=== PATIENT | male | born 1980 | race Caucasian/White ===

== ENCOUNTER 2021-12-07 09:35 | Emergency (ER) | payer BC, SELFPAY ==
[2021-12-07 09:42] VITALS: BP 157/101; PULSE 64; RESP 18; TEMP 36.1; O2SAT 100; BMI 28.1
--- NOTE | 2021-12-07 09:54 | XRR_ITS ---
PROCEDURE INFORMATION: Exam: XR Chest Exam date and time: 12/07/2021 10:07 AM Age: 41 years old Clinical indication: Pain; Angina pectoris; Additional info: Chest pain TECHNIQUE: Imaging protocol: Radiologic exam of the chest. Views: 1 view. COMPARISON: CR Chest 2 views* [id number] 02/26/2018 10:25 AM FINDINGS: Lungs: No focal airspace disease. Pleural spaces: Unremarkable. No pleural effusion. No pneumothorax. Heart/Mediastinum: Cardiomediastinal silhouette is within normal limits. Bones/joints: Unremarkable. XR/XR chest 1V portable [id number] IMPRESSION: No acute cardiopulmonary abnormality.
--- NOTE | 2021-12-07 09:54 | ECG_ITS ---
[facility] Test Date: 2021-12-07 Pat Name: Sanket Caceres Department: Room: Gender: Male Sock Mender: : 1980 Requested By: Radha Johnson Order Number: [id number] Akbar MD: Nirali Gallardo M.D. Measurements Intervals [place] Rate: 71 P: 19 [place]: 176 QRS: 49 QRSD: 81 T: 66 QT: 367 QTc: 400 Interpretive Statements SINUS RHYTHM WITH OCCASIONAL ECTOPIC PREMATURE COMPLEXES Compared to ECG 05/19/2016 09:53:33 T-wave abnormality no longer present Electronically Signed On 12-07-2021 22:17:07 CDT by Nirali Gallardo M.D. [id number]
[2021-12-07 10:15] VITALS: BP 146/92; PULSE 70; RESP 16; O2SAT 96
[2021-12-07 10:27] LABS: Basophils % 0.7 %; Eosinophils # 0.2 10^3/uL (0.0-0.8); Eosinophils % 2.9 %; Hematocrit 46.7 % (42.0-52.0); Hemoglobin 16.1 g/dL (11.7-16.6); Lymphocytes % 34.8 %; Mean Corpuscular HGB Conc 34.5 g/dL (30.0-36.0); Mean Corpuscular Hemoglobin 30.7 pg (28.0-34.0); Mean Platelet Volume 9.4 fL (7.4-10.4); Monocytes # 0.4 10^3/uL (0.2-0.9); Monocytes % 7.2 %; Neutrophils # 3.14 10^3/uL (1.8-7.7); Neutrophils % 54.2 %; Nucleated Red Blood Cells % 0 %; Platelet Count 289 10^3/cmm (130-400); Red Blood Count 5.25 10^6/uL (4.1-5.3); Red Cell Distribution Width 12.3 % (12.1-15.1); White Blood Count 5.8 10^3/uL (4.0-10.0)
--- NOTE | 2021-12-07 10:33 | ED_ITS ---
Documented by User: KEVIN Snowden 12/07/21 13:16 HPI - Chest Pain General: Chief Complaint: Chest Pain Stated Complaint: chest pain Time Seen by Provider: 12/07/21 10:04 Source: patient and family Mode of arrival: ambulatory Limitations: no limitations History of Present Illness: Patient is a nice 41-year-old male who presents to ED today along with his for concerns of left-sided chest pain. Patient states he has had episodic chest pains for several weeks now. He states chest pain does not seem to be related to exertion. He has not found any aggravating factors to his discomfort. No alleviating factors. He states when he gets symptomatic he describes it as a discomfort to the left side of his chest accompanied by palpitations. No radiation. He states he will feel slightly short of breath when he gets palpitations. Patient states episodes will last approximately 15 to 20 minutes before subsiding on their own. He has no previous cardiac or pulmonary history. No significant risk factors. Does not complain of any lower extremity swelling. MD complaint: chest pain Onset (ago): week(s) Timing of current episode: episodic Prior episodes: Yes Onset: during rest Pain location: left chest Pain radiation: none Quality: other ( discomfort ) Relieving factors: nothing Exacerbating factors: nothing Associated symptoms: Reports palpitations; Deny abdominal pain, dyspnea, fever(s), nausea, syncope or vomiting Treatment prior to arrival: none Risk Factors: Coronary artery disease risk factors: none Thoracic aortic dissection risk factors: none Review of Systems Const: Denies: fever(s), chills, body aches, fatigue or malaise Card: Reports: chest pain and palpitations; Denies: irregular heart rhythm, edema, swelling of feet/ankles, lightheadedness, syncope, pre-syncope, dyspnea on exertion, orthopnea, leg pain with exertion or acrocyanosis Resp: Denies: dyspnea, productive cough, non-productive cough, wheezing, pain on inspiration, hemoptysis or chest congestion GI: Denies: abdominal pain, nausea, vomiting or diarrhea Musc: Denies: neck pain, back pain, extremity pain or joint pain Skin/Breast: Denies: rash Neuro: Denies: headache(s), numbness in extremities, weakness in extremities, sensory changes or dizziness Physical Exam Const: COMMON NORMALS: no acute distress, average body habitus, patient oriented x3, no limitations, healthy appearing, alert and well nourished GENERAL APPEARANCE: cooperative ORIENTATION/CONSCIOUSNESS: Yes awake, Yes oriented to person, Yes oriented to place and Yes oriented to time Chest: COMMONS NORMALS: normal inspection of the chest and normal palpation of entire chest wall Resp: COMMON NORMALS: normal respiratory effort and clear to auscultation bilaterally AUSCULTATION: clear to auscultation bilaterally Cardio: COMMON NORMALS: regular rate and regular rhythm RATE: regular rate RHYTHM: regular rhythm GI: COMMON NORMALS: Normal to inspection, nondistended, normoactive bowel s ounds present, Soft to palpation, non-tender, No hepatosplenomegaly present and no masses PALPATION: Yes Soft to palpation and Yes No hepatosplenomegaly present Extremity: COMMON NORMALS: normal to inspection, capillary refill normal, no joint enlargement, no clubbing, cyanosis or edema, no calf tenderness and no pedal edema Neuro: BRIAN COMA SCALE: document GCS findings [place] coma scale eye opening: Spontaneous Brian coma scale verbal response: Orientated Brian coma scale motor response: Obey commands [place] coma scale total score: 15 COMMON NORMALS: patient oriented x3, moves all extremities, no focal motor deficits, no sensory deficits noted and gait normal SENSORIUM/ORIENTATION: Yes alert, Yes oriented to person, Yes oriented to place and Yes oriented to time Skin: COMMON NORMALS: no rashes or lesions noted GENERAL SKIN EXAM: no rashes or lesions noted Course Vital Signs: Vital signs: Vital Signs Temperature 97.0 F L 12/07/21 09:42 Pulse Rate 62 12/07/21 11:36 Respiratory Rate 16 12/07/21 11:36 Blood Pressure 119/78 12/07/21 11:36 Pulse Oximetry 96 12/07/21 11:36 MDM - Chest Pain Medical Decision Making Patient clinically appears in no acute distress. His vital signs are stable. Work-up including troponin is negative. EKG showing sinus rhythm with occasional ectopic beats. HEART score is 0. At this time patient is stable for discharge from the ED. I have written him orders for an outpatient event monitor secondary to the complaint of palpitations and ectopic beats on EKG. We will also refer for outpatient stress test and cardiology follow-up. Return to ED precautions verbally given to patient/. Lab Data : 12/07/21 10:15 12/07/21 10:15 Radiology Impressions Chest X-Ray 12/07/21 09:54 IMPRESSION: No acute cardiopulmonary abnormality. Laboratory Results WBC 5.8 10^3/uL (4.0-10.0) 12/07/21 10:15 RBC 5.25 10^6/uL (4.1-5.3) 12/07/21 10:15 Hgb 16.1 g/dL (11.7-16.6) 12/07/21 10:15 Hct 46.7 % (42.0-52.0) 12/07/21 10:15 MCV 89.0 fl (80-94) 12/07/21 10:15 MCH 30.7 pg (28.0-34.0) 12/07/21 10:15 MCHC 34.5 g/dL (30.0-36.0) 12/07/21 10:15 RDW 12.3 % (12.1-15.1) 12/07/21 10:15 Plt Count 289 10^3/cmm (130-400) 12/07/21 10:15 MPV 9.4 fL (7.4-10.4) 12/07/21 10:15 Neut % (Auto) 54.2 % 12/07/21 10:15 Lymph % (Auto) 34.8 % 12/07/21 10:15 [place] % (Auto) 7.2 % 12/07/21 10:15 Eos % (Auto) 2.9 % 12/07/21 10:15 Baso % (Auto) 0.7 % 12/07/21 10:15 Neut # (Auto) 3.14 10^3/uL (1.8-7.7) 12/07/21 10:15 Lymph # (Auto) 2.0 10^3/uL (0.8-4.8) 12/07/21 10:15 [place] # (Auto) 0.4 10^3/uL (0.2-0.9) 12/07/21 10:15 Eos # (Auto) 0.2 10^3/uL (0.0-0.8) 12/07/21 10:15 Baso # (Auto) 0.0 10^3/uL (0.0-0.1) 12/07/21 10:15 Nucleated RBC % (auto) 0 % 12/07/21 10:15 Nucleated RBCs # 0.0 /100WBC 12/07/21 10:15 Sodium 136 mmol/L (136-145) 12/07/21 10:15 Potassium 4.1 mmol/L (3.5-5.1) 12/07/21 10:15 Chloride 101 mmol/L (98-107) 12/07/21 10:15 Carbon Dioxide 26 mmol/L (22-29) 12/07/21 10:15 Anion Gap 13.1 (5-19) 12/07/21 10:15 BUN 10 mg/dL (6-20) 12/07/21 10:15 Creatinine 1.0 mg/dL (0.7-1.2) 12/07/21 10:15 GFR Calculation 82.3 mL/min (90-130) L 12/07/21 10:15 Glucose 101 mg/dL (65-115) 12/07/21 10:15 Calculated Osmolality 281 mOsm/kg (285-295) L 12/07/21 10:15 Calcium 9.1 mg/dL (8.5-10.5) 12/07/21 10:15 Total Bilirubin 0.4 mg/dL (0.15-1.2) 12/07/21 10:15 AST 18 U/L (0-40) 12/07/21 10:15 ALT 20 U/L (0-41) 12/07/21 10:15 Alkaline Phosphatase 75 IU/L (40-130) 12/07/21 10:15 Troponin T Baseline 9 ng/L (0-15) 12/07/21 10:15 Total Protein 7.8 g/dL (6.6-8.7) 12/07/21 10:15 Albumin 4.9 g/dL (3.5-5.2) 12/07/21 10:15 Globulin 2.9 g/dL (1.3-4.6) 12/07/21 10:15 Discharge Plan Discharge Patient Disposition: Home Clinical Impression: Atypical chest pain Condition: Stable Prescriptions: No Action baclofen 10 mg tablet 10 mg PO TID PRN (Reason: Muscle Spasticity) 0RF buspirone 15 mg tablet 15 mg PO BID 0RF Prilosec OTC 20 mg Tablet,Delayed Release (Dr/Ec) 20 mg PO DAILY 0RF bupropion HCl 300 mg tablet extended release 24 hr 300 mg PO DAILY 0RF Emgality Pen 120 mg/mL pen injector 120 mg SUBCUT Q30D 0RF Discharge Orders: Discharge ED (Routine); Ordered 12/07/21 Ordered By: Radha Johnson Referrals: Leoncio Willingham MD [Primary Care Provider] - Coding Level of Care Code ED Mechanical Insulator for Chg Fwd Exam Comprehensive Documented by User: Cruz Rae MD 12/12/21 17:07 HPI - Chest Pain General: Chief Complaint: Chest Pain Stated Complaint: chest pain Time Seen by Provider: 12/07/21 10:04 Physical Exam Neuro: BRIAN COMA SCALE: document GCS findings [place] coma scale total score: 15 Course Vital Signs: Vital signs: Vital Signs Temperature 97.0 F L 12/07/21 09:42 Pulse Rate 62 12/07/21 11:36 Respiratory Rate 16 12/07/21 11:36 Blood Pressure 119/78 12/07/21 11:36 Pulse Oximetry 96 12/07/21 11:36 MDM - Chest Pain Medical Decision Making Patient clinically appears in no acute distress. His vital signs are stable. Work-up including troponin is negative. EKG showing sinus rhythm with occasional ectopic beats. HEART score is 0. At this time patient is stable for discharge from the ED. I have written him orders for an outpatient event monitor secondary to the complaint of palpitations and ectopic beats on EKG. We will also refer for outpatient stress test and cardiology follow-up. Return to ED precautions verbally given to patient/. Dr. Rae - Patient evaluation, diagnosis, and management was performed independently by Radha Johnson. I did not personally see the patient nor staff the patient with patient's provider. I did review the patient's note today and I believe this note is consistent. Lab Data : 12/07/21 10:15 12/07/21 10:15 Radiology Impressions Chest X-Ray 12/07/21 09:54
[2021-12-07 10:54] LABS: Troponin(5th) Baseline 9 ng/L (0-15)
[2021-12-07 10:56] LABS: Alanine Aminotransferase 20 U/L (0-41); Albumin Level 4.9 g/dL (3.5-5.2); Alkaline Phosphatase 75 IU/L (40-130); Anion Gap 13.1 (5-19); Aspartate Amino Transferase 18 U/L (0-40); Blood Urea Nitrogen 10 mg/dL (6-20); Calcium 9.1 mg/dL (8.5-10.5); Carbon Dioxide 26 mmol/L (22-29); Chloride 101 mmol/L (98-107); Globulin 2.9 g/dL (1.3-4.6); Glomerular Filtration Rate 82.3 mL/min (90-130); Glucose 101 mg/dL (65-115); Osmolality Calculated 281 mOsm/kg (285-295); Potassium 4.1 mmol/L (3.5-5.1); Sodium 136 mmol/L (136-145); Total Bilirubin 0.4 mg/dL (0.15-1.2); Total Protein 7.8 g/dL (6.6-8.7)
[2021-12-07 11:00] VITALS: BP 140/80; PULSE 63; RESP 18
--- NOTE | 2021-12-07 11:19 | PC.PHAR ---
pt and pts verified pts medications-pts states they normally do pill packs from [facility]-pt states he takes the medications entered
[2021-12-07 11:36] VITALS: BP 119/78; PULSE 62; RESP 16; O2SAT 96
--- NOTE | 2021-12-07 11:45 | DCPLANNER ---
Addendum entered by Aura Ureña 03/10/22 14:58: Patient had a stress test scheduled - patient did attend appointment. Original Note: auto parts manager had message to schedule an outpatient stress test for patient. auto parts manager faxed signed order to centralized scheduling, who will call patient with appointment information.
--- NOTE | 2021-12-07 11:46 | DCPLANNER ---
Addendum entered by Aura Ureña 01/13/22 17:08: remote encoding center manager was sent the following message about follow up appointment. Patient was scheduled for 6. and called and cancelled reason patient gave Primary care didnt recommend the monitor and ordered a stress test Original Note: remote encoding center manager had message to schedule an out patient event monitor for patient. remote encoding center manager faxed signed order to heart care, who will call patient with appointment information.
--- NOTE | 2021-12-07 11:51 | DCPLANNER ---
Addendum entered by Aura Ureña 02/14/22 16:22: Patient had a follow up appointment scheduled - appointment was cancelled. Addendum entered by Aura Ureña 12/08/21 14:16: Patient has a follow up appointment scheduled for Sunday, February 01, 2022 at 3:[address] Loredo at [facility]. Clinic will call patient with appointment information. Original Note: bookkeeping manager had message to schedule a follow up appointment for patient with cardiology. bookkeeping manager sent patients information to the front office staff at [facility]. Patients information will be printed and reviewed. Clinic will call patient with appointment information.
== END 2021-12-07 11:37 | disposition home or self-care (01) ==
PROVIDERS: Emergency Provider Physician Assistant; PCP Family Medicine
DX: R07.89 Other chest pain (principal); R00.2 Palpitations; I49.49 Other premature depolarization
CPT/HCPCS: 71045; 80053; 84484; 85025; 93005; 99284

== ENCOUNTER 2022-01-20 07:05 | Outpatient (CLI) | payer BC, SELFPAY ==
[2022-01-20 07:24] VITALS: BMI 28.8
--- NOTE | 2022-01-20 07:31 | ECG_ITS ---
[facility] Test Date: 2022-01-20 Pat Name: Sanket Caceres Department: Room: Gender: Male Coding Support Specialist: : 1980 Requested By: Leoncio Taylor Order Number: [id number] Akbar MD: Windy Loredo M.D. Interpretive Statements NAME OF STUDY: EXERCISE SESTAMIBI STRESS TEST INDICATION: Atypical Chest Pain, PROCEDURE: The baseline electrocardiogram showed normal sinus rhythm with normal ST-Ts. At the baseline, the patient's blood pressure was 127/101 mm Hg with a heart rate of 72. The patient exercised for 8 minutes and 41 seconds on a standard Julio protocol. Patient attained a maximum heart rate of 156 beats per minute(87% of the maximum predicted heart rate) with a blood pressure at the peak exercise of 184/95 mm Hg. The EKG at the peak exercise revealed no significant changes. Patient did not have any chest pain or any significant arrhythmis with the exercise Sestamibi was injected 1 minute prior to the peak exercise During the recovery phase, there were no new changes. Blood pressure at the end of the recovery phase was 156/99 mm Hg with a heart rate of 86 per minute. CONCLUSION: 1. No significant EKG changes with the treadmill exercise 2. No exercise-induced chest pain or cardiac arrhythmia 3. Good exercise tolerance, attained a maximum of 10.2 METs 4. Sestamibi/Sestamibi perfusion results pending; see separate report. Electronically Signed On 01-20-2022 18:32:15 CDT by Windy Loredo M.D. [id number]
--- NOTE | 2022-01-20 07:32 | NMCV_ITS ---
NM ree perf SPECT r/s* [id number] Sanket Caceres Age: 42 Gender: M : 1980 Exam Date: 01/20/2022 08:21 Ordering Phys: eLoncio Willingham MD Technologist: KEYONA Funk Exam Location: [facility] Indications: ATYPICAL CHEST PAIN STRESS TEST [facility] IMAGE PROTOCOL Rest/Stress 1 Exercise Day Radiopharmaceutical Dose (mCi) Administration Site Administered by Rest: Tc-99m 10.6 IV KEYONA Dalton Sestamibi Stress:Tc-99m 32.6 IV KEYONA Dalton Sestamibi Rest: 20-Jan-2022 60 Discovery 630 Stress: 20-Jan-2022 15 Discovery 630 Radiopharmaceutical was injected at 87 % maximum heart rate. Images obtained in supine and prone position. SPECT RESULTS Technical Quality: Excellent Raw Data Analysis: Normal Image Corrections: No attenuation or motion correction applied Summed Stress Score: 0 Summed Rest Score: 0 Summed Difference Score: 0 PERFUSION FINDINGS Uniform myocardial tracer uptake with no significant perfusion abnormalities FUNCTIONAL RESULTS (calculated via Gated SPECT) Stress Image LV EF (%): 93 Stress EDV (mL):67 TID: 0.74 Stress ESV (mL):5 FUNCTIONAL FINDINGS: Segmental wall motion analysis revealing no gross wall motion abnormalities IMPRESSIONS 1. Myocardial perfusion imaging revealing no significant perfusion abnormalities 2. Normal LV ejection fraction of 93% 3. Segmental wall motion analysis revealing no gross wall motion normalities 4. Normal LV volume Low probability for coronary ischemia, based on the above findings Dr Windy Loredo MD FAC (Electronically Signed) Final Date: 20 January 2022 15:37 S
[2022-01-20 09:10] VITALS: BP 156/99; PULSE 84
== END 2022-01-20 07:06 | disposition home or self-care (01) ==
LOC: CDL 07:07
PROVIDERS: PCP Family Medicine; Visit Provider Family Medicine
DX: R07.89 Other chest pain (principal)
CPT/HCPCS: 78452; 93017; A9500

== ENCOUNTER → 2023-03-06 11:46 | Outpatient (BNVA) | payer OTHER, SELFPAY | PROVIDERS: PCP Family Medicine; Visit Provider Family Medicine | DX: R53.83 Other fatigue (principal); F41.9 Anxiety disorder, unspecified | CPT/HCPCS: 80053; 80061; 84403; 84443; 85025 ==

== ENCOUNTER 2024-05-05 12:07 | Outpatient (CLI) | payer OTHER, SELFPAY ==
[2024-05-05 12:29] LABS: Basophils % 0.5 %; Eosinophils # 0.1 10^3/uL (0.0-0.8); Eosinophils % 1.1 %; Hematocrit 45.4 % (37-53); Lymphocytes # 2.5 10^3/uL (0.8-4.8); Lymphocytes % 39.2 %; Mean Corpuscular HGB Conc 34.6 g/dL (30-55); Mean Corpuscular Hemoglobin 30.9 pg (27-33); Mean Corpuscular Volume 89.4 fl (82-101); Mean Platelet Volume 9.1 fL (7.4-10.4); Monocytes # 0.6 10^3/uL (0.2-0.9); Monocytes % 8.7 %; Neutrophils # 3.17 10^3/uL (1.8-7.7); Neutrophils % 50.2 %; Nucleated Red Blood Cells % 0 %; Platelet Count 317 10^3/cmm (157-399); Red Blood Count 5.08 10^6/uL (3.85-5.65); Red Cell Distribution Width 11.4 % (12.1-15.1); White Blood Count 6.32 10^3/uL (3.29-11.43)
[2024-05-05 13:10] LABS: 25 Hydroxy Vitamin D 39 ng/mL (30-100); Alanine Aminotransferase 31 U/L (0-41); Albumin Level 4.5 g/dL (3.5-5.2); Alkaline Phosphatase 73 U/L (40-130); Anion Gap 13.4 (5-19); Aspartate Amino Transferase 18 U/L (0-40); Blood Urea Nitrogen 15 mg/dL (6-20); Calcium 8.9 mg/dL (8.5-10.5); Carbon Dioxide 26 mmol/L (22-29); Chloride 101 mmol/L (98-107); Chol HDL Ratio 5.78 mg/dL (1.0-5.00); Cholesterol 185 mg/dL (0-200); Globulin 2.1 g/dL (1.3-4.6); Glomerular Filtration Rate 72.7 mL/min (90-130); Glucose 97 mg/dL (65-115); HDL Cholesterol 32 mg/dL (60-100); LDL Cholesterol Calculated 135 mg/dL (50-129); LDL HDL Ratio 4.22 RATIO (0.00-3.22); Osmolality Calculated 283 mOsm/kg (285-295); Potassium 4.4 mmol/L (3.5-5.1); Prostate Specific Antigen Scr 0.83 ng/mL (0-4); Sodium 136 mmol/L (136-145); Thyroid Stimulating Hormone 1.12 uIU/mL (0.27-4.20); Total Bilirubin 0.2 mg/dL (0.15-1.2); Total Protein 6.6 g/dL (6.6-8.7); Triglycerides 88 mg/dL (0-150)
[2024-05-05 13:36] LABS: Free T4 Free Thyroxine 1.27 ng/dL (0.82-1.77); Testosterone Total 492.1 ng/dL (249-836)
[2024-05-05 14:08] LABS: Vitamin B12 > 2000 pg/mL (232-1245)
== END 2024-05-05 12:08 | disposition home or self-care (01) ==
LOC: LAB 12:09
PROVIDERS: PCP Family Medicine; Visit Provider Family Medicine
DX: E55.9 Vitamin D deficiency, unspecified (principal); R79.89 Other specified abnormal findings of blood chemistry; G47.33 Obstructive sleep apnea (adult) (pediatric); R53.83 Other fatigue; E29.1 Testicular hypofunction; Z12.5 Encounter for screening for malignant neoplasm of prostate
CPT/HCPCS: 36415; 80053; 80061; 82306; 82607; 84403; 84439; 84443; 85025; G0103

== ENCOUNTER → 2024-12-12 10:42 | Outpatient (BNVA) | payer OTHER, SELFPAY | PROVIDERS: PCP Family Medicine; Visit Provider Family Medicine | DX: R79.89 Other specified abnormal findings of blood chemistry (principal); R53.83 Other fatigue; G47.33 Obstructive sleep apnea (adult) (pediatric) | CPT/HCPCS: 80053; 80061; 84403; 85025 ==